=== PATIENT | male | born 1995 | race Hispanic/Latino ===

== ENCOUNTER 2022-08-08 | Observation (INO) | payer SELFPAY ==
[2022-08-08] MEDS ORDERED: LORazepam 2 MG/ML SYR.(CARPUJECT) ONE (00:04)
[2022-08-08 00:12] LABS: #Basophils 0.1 thou/uL (0.0-0.2); #Eosinphils 0.1 thou/uL (0.0-0.7); #Lymphocytes 4.9 thou/uL (1.20-3.40); #Monocytes 0.4 thou/uL (0.11-0.59); #Neutrophils 4.6 thou/uL (1.40-6.50); %Basophils 0.7 % (0.0-1.0); %Eosinophils 0.6 % (0.0-10.0); %Lymphocytes 48.7 % (21.0-51.0); %Monocytes 4.4 % (0.0-10.0); %Neutrophils 45.6 % (42.0-75.0); Hemoglobin 16.1 g/dL (14.0-18.0); Mean Corpuscular HGB CONC 35.3 g/dL (32.0-36.0); Mean Corpuscular Hemoglobin 31.2 pg (27.0-31.0); Mean Corpuscular Volume 88.3 fl (78.0-98.0); Mean Platelet Volume 7.4 fL (7.4-10.4); Platelet Count 313 10x3/uL (130-400); RBC Distribution Width 11.9 % (11.5-14.5); Red Blood Cell (RBC) Count 5.16 mill/uL (4.70-6.10)
[2022-08-08 00:21] LABS: PTT 28.3 sec (22.9-36.1); Prothrombin Time 13.7 sec (12.0-14.7)
[2022-08-08 00:28] LABS: ALT (SGPT) 20 U/L (8-55); AST (SGOT) 19 U/L (5-34); Albumin 4.5 g/dL (3.5-5.0); Alkaline Phosphatase 82 U/L (40-110); Anion Gap 17 mmol/L (10-20); BUN (Urea Nitrogen) 11 mg/dL (8.9-20.6); Bilirubin, Total 0.3 mg/dL (0.2-1.2); Calc. Creatinine Clearance 0 mL/min (70-130); Calcium 9.3 mg/dL (7.8-10.44); Carbon Dioxide 21 mmol/L (22-29); Chloride 108 mmol/L (98-107); Estimated GFR 60; Globulin 3.3 g/dL (2.4-3.5); Glucose 120 mg/dL (70-105); Potassium 3.6 mmol/L (3.5-5.1); Protein, Total 7.8 g/dL (6.0-8.3); Sodium 142 mmol/L (136-145)
[2022-08-08 00:37] LABS: Acetaminophen Less than 10.0 mcg/mL (10.0-30.0); Alcohol 186 mg/dL (Less than 10); Salicylate Less than 8.0 mg/dL (15.0-30.0)
[2022-08-08] MEDS ORDERED: Lidocaine 1% w/Epinephrine 1:100K 20 ML VIAL ONE (00:55)
[2022-08-08] MEDS ORDERED: Dextrose 5% in Water 1,000 ML IV PRN (01:04)
[2022-08-08] MEDS ORDERED: Ondansetron ODT 4 MG TAB PO PRN (01:04)
[2022-08-08] MEDS ORDERED: TETANUS, DIPHTHERIA TOX,ADULT (TDVAX) 0.5 ML VIAL IM ONE (01:04)
[2022-08-08] MEDS ORDERED: Dextrose 50% Abboject 50 ML SYRINGE SLOW IVP PRN (01:04)
[2022-08-08] MEDS ORDERED: Ondansetron PF 4 MG/2 ML Vial IVP PRN (01:04)
[2022-08-08] MEDS ORDERED: Lactated Ringer's 1,000 ML IV SCH (01:15)
[2022-08-08] MEDS: Lactated Ringer's 1,000 ML IV SCH ×2 (03:30→11:12)
[2022-08-08 04:23] VITALS: BMI 37.9
[2022-08-08 05:03] LABS: #Lymphocytes 1.9 thou/uL (1.20-3.40); #Monocytes 0.8 thou/uL (0.11-0.59); #Neutrophils 11.5 thou/uL (1.40-6.50); %Basophils 0.2 % (0.0-1.0); %Eosinophils 0.2 % (0.0-10.0); %Lymphocytes 13.5 % (21.0-51.0); %Monocytes 5.5 % (0.0-10.0); %Neutrophils 80.7 % (42.0-75.0); Hemoglobin 13.3 g/dL (14.0-18.0); Mean Corpuscular HGB CONC 35.1 g/dL (32.0-36.0); Mean Corpuscular Volume 88.4 fl (78.0-98.0); Mean Platelet Volume 7.4 fL (7.4-10.4); Platelet Count 246 10x3/uL (130-400); RBC Distribution Width 11.9 % (11.5-14.5); Red Blood Cell (RBC) Count 4.28 mill/uL (4.70-6.10); White Blood Cell (WBC) Count 14.2 10x3/uL (4.8-10.8)
[2022-08-08 05:21] LABS: Lactic Acid 2.1 mmol/L (0.5-2.2)
[2022-08-08 05:24] LABS: Anion Gap 14 mmol/L (10-20); BUN (Urea Nitrogen) 13 mg/dL (8.9-20.6); Calc. Creatinine Clearance 157 mL/min (70-130); Calcium 8.3 mg/dL (7.8-10.44); Carbon Dioxide 19 mmol/L (22-29); Chloride 113 mmol/L (98-107); Estimated GFR 99; Glucose 116 mg/dL (70-105); Magnesium 1.9 mg/dL (1.6-2.6); Potassium 3.9 mmol/L (3.5-5.1); Sodium 142 mmol/L (136-145)
[2022-08-08] MEDS: CEFAZOLIN 1 GM VIAL SLOW IVP SCH ×2 (08:55→16:46)
[2022-08-08] MEDS ORDERED: Famotidine 20 MG TAB PO SCH (09:00)
[2022-08-08] MEDS ORDERED: Iopamidol-370 76% 500 ML MDV (1 ML CHARGE) ONE (11:14)
[2022-08-08] MEDS ORDERED: Bacitracin Zinc Ointment 30 gm TUBE ONE (13:07)
[2022-08-08] MEDS ORDERED: Chlorhexidine Gluconate 15 ML UDCUP SSP ONE (13:08)
[2022-08-08] MEDS ORDERED: EPINEPHrine 1 MG/ML AMP ONE (13:08)
[2022-08-08] MEDS ORDERED: Lidocaine 1% (PF) 30 ML VIAL ONE (13:08)
[2022-08-08] MEDS ORDERED: SUGAMMADEX SODIUM 200 MG/2 ML VIAL ONE (13:10)
[2022-08-08] MEDS ORDERED: Fentanyl 250 MCG/5 ML VIAL ONE (13:10)
[2022-08-08] MEDS ORDERED: Midazolam HCl 2 mg/2 ml Vial ONE (13:10)
[2022-08-08] MEDS ORDERED: Oxymetazoline HCl 0.05% (30 ML BOT) ONE ×2 (13:11→13:29)
[2022-08-08] MEDS ORDERED: Lidocaine 4% Topical Sol 50 ML BOT ONE (13:11)
[2022-08-08] MEDS ORDERED: Dexamethasone 20 MG/5 ML VIAL ONE (13:26)
[2022-08-08] MEDS ORDERED: Lidocaine 1% PF 5 ML VIAL ONE (13:26)
[2022-08-08] MEDS ORDERED: Rocuronium Bromide 10 MG/ML (10ML VIAL) ONE (13:26)
[2022-08-08] MEDS ORDERED: PROPOFOL 200 MG/20 ML VIAL ONE (13:26)
[2022-08-08] MEDS ORDERED: Neomycin-Polymyxin 1 ML AMP ONE (13:53)
[2022-08-08] MEDS ORDERED: HYDROmorphone 0.5 MG/0.5 ML SYRINGE ONE (14:36)
[2022-08-08] MEDS ORDERED: Ondansetron HCl/PF 4 MG/2 ML Vial IVP PRN (15:18)
[2022-08-08] MEDS ORDERED: Promethazine HCl 25 MG/ML VIAL IM PRN (15:18)
[2022-08-08] MEDS ORDERED: HYDROmorphone 2 MG/ML VIAL SLOW IVP PRN (15:18)
[2022-08-08 20:32] VITALS: BP 134/83; TEMP 98.2
== END 2022-08-08 20:25 | disposition home or self-care (01) ==
LOC: ERS → SURG A 01:09
PROVIDERS: ADMIT Specialist; ATTEND Specialist
PROC: 0CQ1XZZ Repair Lower Lip, External Approach (ICD-10-PCS; principal; 2022-08-08)
PROC: 0CQ0XZZ Repair Upper Lip, External Approach (ICD-10-PCS; 2022-08-08)
DX: S01.511A Laceration without foreign body of lip, initial encounter (principal); S21.132A Puncture wound without foreign body of left front wall of thorax without penetration into thoracic cavity, initial encounter; S11.93XA Puncture wound without foreign body of unspecified part of neck, initial encounter; G89.11 Acute pain due to trauma; S02.69XA Fracture of mandible of other specified site, initial encounter for closed fracture; S21.211A Laceration without foreign body of right back wall of thorax without penetration into thoracic cavity, initial encounter; N17.9 Acute kidney failure, unspecified; F10.129 Alcohol abuse with intoxication, unspecified; J32.0 Chronic maxillary sinusitis; Z87.891 Personal history of nicotine dependence; Y90.6 Blood alcohol level of 120-199 mg/100 ml; X99.9XXA Assault by unspecified sharp object, initial encounter
CPT/HCPCS: 36415; 36416; 70450; 70486; 71045; 71260; 72125; 74177; 80053; 80307; 83605; 83735; 84484; 85025; 85610; 85730; 86850; 86900; 86901; 96376; G0378; J0171; J0690; J1100; J1170; J2001; J2060; J2250; J2704; J3010; J7120; Q9967